=== PATIENT | male | born 1965 | race Two or more races ===

== ENCOUNTER 2024-05-11 10:13 | Outpatient (AMB) | payer MEDICAID, SELFPAY ==
--- NOTE | 2024-05-11 10:22 | ORTHONT_ITS ---
Vital signs 05/11/24 10:23 Height 1.78 m Height Method Stated Weight 77.224 kg Weight Measurement Method Standing Scale BMI 24.3 BP 149/89 H Blood Pressure Source Automatic Cuff Blood Pressure Location Right Upper Arm Position Sitting Respiration 19 Pulse 100 Pulse Source Monitor Temp 97.9 F Temp Source Temporal Artery Scan Pulse Oximetry (%) 95 Oxygen Delivery Method Room Air Med/Allergies Allergies & Medications Allergies No Known Allergies Allergy (Verified 05/11/24 10:25) Medication Reconciliation benzonatate 200 mg capsule 200 mg PO Q8HR PRN Cough 04/23/24 [History Confirmed 05/11/24] acetaminophen 500 mg tablet (Acetaminophen Extra Strength) 1,000 mg (2 x 500 mg) PO Q6H PRN pain #90 tabs 04/26/24 [Rx Confirmed 05/11/24] aspirin 81 mg tablet,delayed release 81 mg PO BID #60 tabs 04/26/24 [Rx Confirmed 05/11/24] doxycycline hyclate 100 mg tablet 100 mg PO BID #14 tabs 04/26/24 [Rx Confirmed 05/11/24] gabapentin 300 mg capsule 300 mg PO .qhs #30 caps 04/26/24 [Rx Confirmed 05/11/24] oxycodone 5 mg tablet 5 mg PO Q6H PRN pain #28 tabs 04/26/24 [Rx Confirmed 05/11/24] sennosides 8.6 mg-docusate sodium 50 mg tablet (Senna-S) 1 tab-cap PO QDAY #30 tabs 04/26/24 [Rx Confirmed 05/11/24] oxycodone 5 mg tablet 5 mg PO Q6H PRN pain #28 tabs 05/03/24 [Rx Confirmed 05/11/24] acetaminophen 500 mg tablet (Acetaminophen Extra Strength) 1,000 mg (2 x 500 mg) PO Q6H PRN pain #90 tabs 05/10/24 [Rx Confirmed 05/11/24] oxycodone 5 mg tablet 5 mg PO Q6H PRN pain #28 tabs 05/10/24 [Rx Confirmed 05/11/24] Subjective Visit Visit for: post op #1 and knee Immunization / Flu Flu Vaccine in the Last 12 Months: Yes Flu Vaccine Exclusion Criteria: Already Received History of Present Illness Chief complaint: 2 WEEK POST OP Date of 1st surgery (if applicable): 04/26/24 Damian is 2 weeks status post right total knee replacement. There were some blisters which have resolved. There was some swelling. He is walking and r eports the pain is now more manageable Personal History Occupation: DISABLED Red flag PMH: none Pain Pain level (0-10): 5 Pain duration: ALL DAY Pain location: groin, inside (medial), outside (lateral) and anterior Pain quality: sharp, dull and aching Pain timing: increases with activity Associated signs & symptoms: numbness Ambulatory data Ambulatory device: walker Treatments Improvement with previous injections: No Improvement with PT: No Improvement with NSAIDS: no Review of Systems Review of Systems: All systems negative unless otherwise noted in HPI. Exam Exam Patient is in no acute distress and is cooperative with the examination today. Regular rate and rhythm Breathing is nonlabored. In no respiratory distress. Bilateral extremities were evaluated and demonstrates sensation intact to light touch. Palpable pedal pulses are present. No significant edema is present. Bilateral hips were examined. The patient has no pain with log roll of the hips. Internal rotation to 30 degrees and external rotation to 30 degrees is painless. Negative FADIR. The left knee was examined. The left knee is in [varus] alignment. Range of motion from [0-115] degrees. Knee is stable to varus and valgus as well as AP translation with <5mm. Patient has a [negative] McMurrays. There is [no] pain with patellofemoral compression and [no] crepitus noted. The knee is [tender] to palpation [medially]. Right knee incision is clean dry and intact. Range of motion is 0 to 70 degrees. The blisters have now healed Assessment and Plan Problem List (1) History of total right knee replacement: Status: Acute Plan: Patient is a pleasant 58-year-old male who is status post right total knee replacement. He is doing well. Will see him approximately in 4 weeks for routine follow-up Office Procedures GNS Level of Care Nursing/Assessment Patient Status: Established Patient Nursing Assessment/Reassesment: Medication Reconciliation, Update PMH in EMR and Vital Signs Coordination of Care: Complex Care and Chronic Disease 1-5, Education Complex Pt/Fam, Consent,records obtained, informed consent, Lab and Imaging orders, Results/Orders obtained and Staff clarify orders Special Needs: Language special needs Established Patient Charge Established Patient Point Assignment: 110 Established Patient Point Charge: EP Level 3 (80-115) Past Medical History Past Medical History Have you ever been diagnosed with any of the following: Neurological Problems Seizures: No Cardiology Problems Congestive Heart Failure: No Respiratory Problems Chronic Obstructive Pulmonary Disease (COPD): No Smoking: No (40+YEARS) Smoking Cessation Counseling: No Smoking Exposure: Yes Genital/Urinary Problems Renal Disease: No Musculoskeletal Problems Arthritis: Yes Fractures: Yes (right arm at 15 yrs old) Head,Eye,Nose,Throat Problems Cataracts: Yes Endocrine Problems Diabetes Mellitus Type 1: No Diabetes Mellitus Type 2: No Other Problems Hospitalization: No Shingles: No Blood Transfusions: No Anesthesia Reactions: No Chicken Pox: Yes Cancer: No Surgical History Total Knee Replacement: Yes
[2024-05-11 10:23] VITALS: BP 149/89; PULSE 100; RESP 19; TEMP 36.6; O2SAT 95; BMI 24.3
== END 2024-05-11 10:46 | disposition home or self-care (01) ==
LOC: HODSRG 10:13
PROVIDERS: PCP Family Medicine; Referring Provider Family Medicine; Supervising Provider Orthopaedic Surgery Adult Reconstructive Orthopaedic Surgery; Visit Provider Orthopaedic Surgery Adult Reconstructive Orthopaedic Surgery
DX: Z96.651 Presence of right artificial knee joint (principal)
CPT/HCPCS: 99213; G0463

== ENCOUNTER 2024-06-11 08:23 | Outpatient (AMB) | payer MEDICAID, SELFPAY ==
[2024-06-11 09:00] VITALS: BP 149/84; PULSE 75; RESP 18; TEMP 36.4; O2SAT 99; BMI 24.6
--- NOTE | 2024-06-11 09:00 | PD.ORTHCLVIS ---
Vital signs 06/11/24 09:00 Height 1.78 m Height Method Stated Weight 78.16 kg Weight Measurement Method Standing Scale BMI 24.6 BP 149/84 H Blood Pressure Source Automatic Cuff Blood Pressure Location Right Upper Arm Position Sitting Respiration 18 Pulse 75 Pulse Source Monitor Temp 97.6 F Temp Source Temporal Artery Scan Pulse Oximetry (%) 99 Oxygen Delivery Method Room Air Med/Allergies Allergies & Medications Allergies No Known Allergies Allergy (Verified 06/11/24 09:01) Medication Reconciliation benzonatate 200 mg capsule 200 mg PO Q8HR PRN Cough 04/23/24 [History Confirmed 06/11/24] acetaminophen 500 mg tablet (Acetaminophen Extra Strength) 1,000 mg (2 x 500 mg) PO Q6H PRN pain #90 tabs 04/26/24 [Rx Confirmed 06/11/24] aspirin 81 mg tablet,delayed release 81 mg PO BID #60 tabs 04/26/24 [Rx Confirmed 06/11/24] doxycycline hyclate 100 mg tablet 100 mg PO BID #14 tabs 04/26/24 [Rx Confirmed 06/11/24] gabapentin 300 mg capsule 300 mg PO .qhs #30 caps 04/26/24 [Rx Confirmed 06/11/24] oxycodone 5 mg tablet 5 mg PO Q6H PRN pain #28 tabs 04/26/24 [Rx Confirmed 06/11/24] sennosides 8.6 mg-docusate sodium 50 mg tablet (Senna-S) 1 tab-cap PO QDAY #30 tabs 04/26/24 [Rx Confirmed 06/11/24] oxycodone 5 mg tablet 5 mg PO Q6H PRN pain #28 tabs 05/03/24 [Rx Confirmed 06/11/24] acetaminophen 500 mg tablet (Acetaminophen Extra Strength) 1,000 mg (2 x 500 mg) PO Q6H PRN pain #90 tabs 05/10/24 [Rx Confirmed 06/11/24] oxycodone 5 mg tablet 5 mg PO Q6H PRN pain #28 tabs 05/21/24 [Rx Confirmed 06/11/24] cyclobenzaprine 5 mg tablet 5 mg PO QHS PRN muscle spasm #60 tabs 06/11/24 [Rx] Subjective Visit Visit for: follow up visit, post op #2 and knee Immunization / Flu Flu Vaccine in the Last 12 Months: No Flu Vaccine Exclusion Criteria: No Exclusion Criteria History of Present Illness Chief complaint: POST OP Date of 1st surgery (if applicable): 04/23 Damina is 2 weeks status post right total knee replacement. He is working with physical therapy outpatient has great range of motion. He is still using a cane Personal History Occupation: DISABLED Red flag PMH: none Pain Pain level (0-10): 4 Pain duration: CONSTANT Pain location: anterior and posterior Pain quality: sharp, dull and aching Pain timing: night Associated signs & symptoms: none Ambulatory data Ambulatory device: cane Treatments Improvement with previous injections: No Improvement with PT: No Improvement with NSAIDS: n/a Review of Systems Review of Systems: All systems negative unless otherwise noted in HPI. Exam Exam Patient is in no acute distress and is cooperative with the examination today. Regular rate and rhythm Breathing is nonlabored. In no respiratory distress. Bilateral extremities were evaluated and demonstrates sensation intact to light touch. Palpable pedal pulses are present. No significant edema is present. Bilateral hips were examined. The patient has no pain with log roll of the hips. Internal rotation to 30 degrees and external rotation to 30 degrees is painless. Negative FADIR. The left knee was examined. The left knee is in [varus] alignment. Range of motion from [0-115] degrees. Knee is stable to varus and valgus as well as AP translation with <5mm. Patient has a [negative] McMurrays. There is [no] pain with patellofemoral compression and [no] crepitus noted. The knee is [tender] to palpation [medially]. Right knee incision is clean dry and intact. Range of motion is 0 to 110 degrees Assessment and Plan Problem List (1) History of total right knee replacement: Status: Acute Plan: Patient is a pleasant 58-year-old male who is status post right total knee replacement. He is doing well. Will see him approximately in 6 weeks for routine follow-up Office Procedures GNS Level of Care Nursing/Assessment Patient Status: Established Patient Nursing Assessment/Reassesment: Medication Reconciliation, Update PMH in EMR and Vital Signs Coordination of Care: Complex Care and Chronic Disease 1-5, Education Complex Pt/Fam, Consent,records obtained, informed consent, Results/Orders obtained and Staff clarify orders Special Needs: Language special needs Established Patient Charge Established Patient Point Assignment: 95 Established Patient Point Charge: EP Level 3 (80-115) Past Medical History Past Medical History Have you ever been diagnosed with any of the following: Neurological Problems Seizures: No Cardiology Problems Congestive Heart Failure: No Respiratory Problems Chronic Obstructive Pulmonary Disease (COPD): No Smoking: No (40+YEARS) Smoking Cessation Counseling: No Smoking Exposure: Yes Genital/Urinary Problems Renal Disease: No Musculoskeletal Problems Arthritis: Yes Fractures: Yes (right arm at 15 yrs old) Head,Eye,Nose,Throat Problems Cataracts: Yes Endocrine Problems Diabetes Mellitus Type 1: No Diabetes Mellitus Type 2: No Other Problems Hospitalization: No Shingles: No Blood Transfusions: No Anesthesia Reactions: No Chicken Pox: Yes Cancer: No Surgical History Total Knee Replacement: Yes
== END 2024-06-11 09:27 | disposition home or self-care (01) ==
LOC: HODSRG 08:23
PROVIDERS: PCP Family Medicine; Referring Provider Family Medicine; Supervising Provider Orthopaedic Surgery Adult Reconstructive Orthopaedic Surgery; Visit Provider Orthopaedic Surgery Adult Reconstructive Orthopaedic Surgery
DX: Z96.651 Presence of right artificial knee joint (principal)
CPT/HCPCS: 99213; G0463

== ENCOUNTER → 2024-06-11 | Outpatient (CLI) | payer MEDICAID, SELFPAY ==
--- NOTE | 2024-06-11 09:54 | XR_ITS ---
Examination: Right knee 4 views TECHNIQUE: AP oblique lateral axial right knee standing 4 views Exam date and time: June 11, 2020 4:11 AM INDICATIONS: Status post knee replacement 6 weeks ago. FINDINGS: Moderate osteopenia Total right knee arthroplasty. Satisfactory alignment Moderate knee effusion IMPRESSION: Total right knee arthroplasty with satisfactory alignment
== END | disposition home or self-care (01) ==
PROVIDERS: Referring Provider Orthopaedic Surgery Adult Reconstructive Orthopaedic Surgery; Visit Provider Orthopaedic Surgery Adult Reconstructive Orthopaedic Surgery
DX: M17.11 Unilateral primary osteoarthritis, right knee (principal); Z96.651 Presence of right artificial knee joint
CPT/HCPCS: 73564

== ENCOUNTER 2024-07-23 08:26 | Outpatient (AMB) | payer MEDICAID, SELFPAY ==
[2024-07-23 08:48] VITALS: BP 135/88; PULSE 79; RESP 18; TEMP 36.5; O2SAT 95; BMI 25.0
--- NOTE | 2024-07-23 08:48 | ORTHONT_ITS ---
Vital signs 07/23/24 08:48 Height 1.78 m Height Method Stated Weight 79.52 kg Weight Measurement Method Standing Scale BMI 25.0 BP 135/88 H Blood Pressure Source Automatic Cuff Blood Pressure Location Right Upper Arm Position Sitting Respiration 18 Pulse 79 Pulse Source Monitor Temp 97.7 F Temp Source Temporal Artery Scan Pulse Oximetry (%) 95 Oxygen Delivery Method Room Air Med/Allergies Allergies & Medications Allergies No Known Allergies Allergy (Verified 07/23/24 08:49) Medication Reconciliation benzonatate 200 mg capsule 200 mg PO Q8HR PRN Cough 04/23/24 [History Confirmed 07/23/24] gabapentin 300 mg capsule 300 mg PO .qhs #30 caps 04/26/24 [Rx Confirmed 07/23/24] acetaminophen 500 mg tablet (Acetaminophen Extra Strength) 1,000 mg (2 x 500 mg) PO Q6H PRN pain #90 tabs 05/10/24 [Rx Confirmed 07/23/24] oxycodone 5 mg tablet 5 mg PO Q6H PRN pain #28 tabs 05/21/24 [Rx Confirmed 07/23/24] cyclobenzaprine 5 mg tablet 5 mg PO QHS PRN muscle spasm #60 tabs 06/11/24 [Rx Confirmed 07/23/24] Exam Exam Patient is in no acute distress and is cooperative with the examination today. Regular rate and rhythm Breathing is nonlabored. In no respiratory distress. Bilateral extremities were evaluated and demonstrates sensation intact to light touch. Palpable pedal pulses are present. No significant edema is present. Bilateral hips were examined. The patient has no pain with log roll of the hips. Internal rotation to 30 degrees and external rotation to 30 degrees is painless. Negative FADIR. The left knee was examined. The left knee is in [varus] alignment. Range of motion from [0-115] degrees. Knee is stable to varus and valgus as well as AP translation with <5mm. Patient has a [negative] McMurrays. There is [no] pain with patellofemoral compression and [no] crepitus noted. The knee is [tender] to palpation [medially]. Right knee incision is clean dry and intact. Range of motion is 0 to 110 degrees Assessment and Plan Problem List (1) History of total right knee replacement: Status: Acute Plan: Patient is a pleasant 58-year-old male who is status post right total knee replacement. He is doing well. We will see him back in 4 months. Office Procedures GNS Level of Care Nursing/Assessment Patient Status: Established Patient Nursing Assessment/Reassesment: Medication Reconciliation, Update PMH in EMR and Vital Signs Coordination of Care: Complex Care and Chronic Disease 1-5, Education Complex Pt/Fam, Consent,records obtained, informed consent, Results/Orders obtained and Staff clarify orders Special Needs: Language special needs Established Patient Charge Established Patient Point Assignment: 95 Established Patient Point Charge: EP Level 3 (80-115) MA Intake Visit Data Collection New Patient or Established: Established Patient (seen at [facility] within 3 years) Reason for Visit:: 6 WEEK F/U Seen by Clinical Staff ONLY (RN/MA): No Verbal consent obtained for Telemed visit?: No 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 PCP or OBGYN visit in last 3 months: Yes Hx Now: No Do You Feel Safe at Home: Yes Authorities Contacted: N/A Questionairres Past Medical History Past Medical History Have you ever been diagnosed with any of the following: Neurological Problems Seizures: No Cardiology Problems Congestive Heart Failure: No Respiratory Problems Chronic Obstructive Pulmonary Disease (COPD): No Smoking: No (40+YEARS) Smoking Cessation Counseling: No Smoking Exposure: Yes Genital/Urinary Problems Renal Disease: No Musculoskeletal Problems Arthritis: Yes Fractures: Yes (right arm at 15 yrs old) Head,Eye,Nose,Throat Problems Cataracts: Yes Endocrine Problems Diabetes Mellitus Type 1: No Diabetes Mellitus Type 2: No Other Problems Hospitalization: No Shingles: No Blood Transfusions: No Anesthesia Reactions: No Chicken Pox: Yes Cancer: No Surgical History Total Knee Replacement: Yes Subjective Visit Visit for: follow up visit and knee Immunization / Flu Flu Vaccine in the Last 12 Months: Yes Flu Vaccine Exclusion Criteria: Already Received History of Present Illness Chief complaint: 6 WEEK TKA FOLLOW UP Patient is doing well 3 months s/p R TKA. He is doing well and has minimal pain. He wants aniinflammatories for his left knee. Personal History Occupation: UNEMPLOYED Red flag PMH: none BMI Counceling provided: Yes Pain Pain level (0-10): 2 Pain duration: COMES AND GOES Pain location: inside (medial), outside (lateral), anterior and posterior Pain quality: dull and aching Associated signs & symptoms: none Ambulatory data Ambulatory device: none Treatments Improvement with previous injections: No Improvement with PT: No Improvement with NSAIDS: n/a Review of Systems Review of Systems: All systems negative unless otherwise noted in HPI.
== END 2024-07-23 09:16 | disposition home or self-care (01) ==
LOC: HODSRG 08:26
PROVIDERS: PCP Family Medicine; Referring Provider Family Medicine; Supervising Provider Orthopaedic Surgery Adult Reconstructive Orthopaedic Surgery; Visit Provider Orthopaedic Surgery Adult Reconstructive Orthopaedic Surgery
DX: Z47.1 Aftercare following joint replacement surgery (principal); Z96.651 Presence of right artificial knee joint
CPT/HCPCS: 99213; G0463

== ENCOUNTER 2024-11-16 08:29 | Outpatient (AMB) | payer MEDICAID, SELFPAY ==
[2024-11-16 08:42] VITALS: BP 137/85; PULSE 72; RESP 18; TEMP 36.5; O2SAT 95; BMI 25.4
--- NOTE | 2024-11-16 08:42 | PD.ORTHCLVIS ---
Vital signs 11/16/24 08:42 Height 1.78 m Height Method Stated Weight 80.541 kg Weight Measurement Method Standing Scale BMI 25.4 BP 137/85 H Blood Pressure Source Automatic Cuff Blood Pressure Location Right Upper Arm Position Sitting Respiration 18 Pulse 72 Pulse Source Monitor Temp 97.7 F Temp Source Temporal Artery Scan Pulse Oximetry (%) 95 Oxygen Delivery Method Room Air Med/Allergies Allergies & Medications Allergies No Known Allergies Allergy (Verified 11/16/24 08:43) Medication Reconciliation benzonatate 200 mg capsule 200 mg PO Q8HR PRN Cough 04/23/24 [History Confirmed 11/16/24] Exam Exam Patient is in no acute distress and is cooperative with the examination today. Regular rate and rhythm Breathing is nonlabored. In no respiratory distress. Bilateral extremities were evaluated and demonstrates sensation intact to light touch. Palpable pedal pulses are present. No significant edema is present. Bilateral hips were examined. The patient has no pain with log roll of the hips. Internal rotation to 30 degrees and external rotation to 30 degrees is painless. Negative FADIR. The left knee was examined. The left knee is in [varus] alignment. Range of motion from [0-115] degrees. Knee is stable to varus and valgus as well as AP translation with <5mm. Patient has a [negative] McMurrays. There is [no] pain with patellofemoral compression and [no] crepitus noted. The knee is [tender] to palpation [medially]. Right knee incision is clean dry and intact. Range of motion is 0 to 110 degrees Assessment and Plan Problem List (1) History of total right knee replacement: Status: Acute Plan: Patient is a pleasant 58-year-old male who is status post right total knee replacement. He is doing well. He has pain in his left knee as well. He has a significant arthritis with cortisone injection on the left knee. Will also get new x-rays of his right Recommend knee cortisone injection as patient would like to proceed with conservative treatment at this time. The risks and benefits of the procedure were reviewed with the patient and patient gave verbal consent to continue with the procedure. Procedure: performed by Dr. Torres Using sterile technique the left knee was thoroughly prepped with alcohol, and approximately 1 cc of Kenalog 40 mg/mL and 4 cc of 1% lidocaine was injected without resistance into the medial tibial femoral joint space. The patient tolerated the procedure. Office Procedures GNS Level of Care Nursing/Assessment Patient Status: Established Patient Nursing Assessment/Reassesment: Medication Reconciliation, Update PMH in EMR and Vital Signs Coordination of Care: Complex Care and Chronic Disease 1-5, Education Complex Pt/Fam, Consent,records obtained, informed consent, Lab and Imaging orders, Results/Orders obtained and Staff clarify orders Special Needs: Language special needs Established Patient Charge Established Patient Point Assignment: 110 Established Patient Point Charge: EP Level 3 (80-115) Surgical Proc/IM SQ injection Major Surgical Procedure: Yes (KNEE INJECTION) Medication Given Medication Given Medication Given: Yes Documented Dose Given: 4 Route: Infiitration Medication Given Medication Given Medication Given: Yes Documented Dose Given: 1 Route: Infiitration Office Meds Xylocaine 10 mg/mL (1 %) injection solution Performing Provider: Pal Torres MD Performing Location: [facility] Administered by: Pal Torres MD on 11/16/24 09:07 Dose Route Admin Location Dispensed Lot Number Expiration Date [facility] [place]NOTE 2] Functional Tester 20 mL Infiltration 20 mL [id number] 03/05/28 44876-640-60 [facility] triamcinolone acetonide 40 mg/mL suspension for injection Performing Provider: Pal Torres MD Performing Location: [facility] Administered by: Pal Torres MD on 11/16/24 09:07 Dose Route Admin Location Dispensed Lot Number Expiration Date [facility] [place]NOTE 2] Functional Tester 40 mg Infiltration KNEE 1 mL [id number] 05/05/26 1852-1266-25 [employer] [place] Intake Visit Data Collection New Patient or Established: Established Patient (seen at [facility] within 3 years) Reason for Visit:: 6 MONTH FOLLOW UP Seen by Clinical Staff ONLY (RN/MA): No Verbal consent obtained for Telemed visit?: No 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 PCP or OBGYN visit in last 3 months: Yes Hx Now: No Do You Feel Safe at Home: Yes Authorities Contacted: N/A Questionairres Past Medical History Past Medical History Have you ever been diagnosed with any of the following: Neurological Problems Seizures: No Cardiology Problems Congestive Heart Failure: No Respiratory Problems Chronic Obstructive Pulmonary Disease (COPD): No Smoking: No (40+YEARS) Smoking Cessation Counseling: No Smoking Exposure: Yes Genital/Urinary Problems Renal Disease: No Musculoskeletal Problems Arthritis: Yes Fractures: Yes (right arm at 15 yrs old) Head,Eye,Nose,Throat Problems Cataracts: Yes Endocrine Problems Diabetes Mellitus Type 1: No Diabetes Mellitus Type 2: No Other Problems Hospitalization: No Shingles: No Blood Transfusions: No Anesthesia Reactions: No Chicken Pox: Yes Cancer: No Surgical History Total Knee Replacement: Yes Subjective Visit Visit for: follow up visit and knee Immunization / Flu Flu Vaccine in the Last 12 Months: Yes Flu Vaccine Exclusion Criteria: Already Received History of Present Illness Chief complaint: 6 MONTH FOLLOW UP Patient is doing well 6 months s/p R TKA. He is doing well and has minimal pain. He wants antiinflammatories for his left knee. Personal History Occupation: UNEMPLOYED Red flag PMH: Blood thinners and BMI BMI Counceling provided: Yes Pain Pain level (0-10): 4 Pain duration: EXTENDING/BENDING Pain location: outside (lateral) Pain quality: sharp, dull and aching Pain timing: increases with activity Associated signs & symptoms: none Ambulatory data Ambulatory device: none Treatments Improvement with previous injections: No Improvement with PT: No Improvement with NSAIDS: no Review of Systems Review of Systems: All systems negative unless otherwise noted in HPI.
--- NOTE | 2024-11-16 08:49 | XR_ITS ---
Examination: Right knee 4 views TECHNIQUE: AP oblique lateral axial right knee 4 views standing Date and time: November 16, 2024 0910 hours INDICATIONS: Right knee replacement April 2025. FINDINGS: Comparison June 11, 2024 Total right knee arthroplasty. Satisfactory alignment. No patellar dislocation No fracture IMPRESSION: Total right knee arthroplasty with satisfactory alignment
== END 2024-11-16 09:05 | disposition home or self-care (01) ==
LOC: HODSRG 08:29
PROVIDERS: Supervising Provider Orthopaedic Surgery Adult Reconstructive Orthopaedic Surgery; Visit Provider Orthopaedic Surgery Adult Reconstructive Orthopaedic Surgery
DX: M17.12 Unilateral primary osteoarthritis, left knee (principal); Z96.651 Presence of right artificial knee joint
CPT/HCPCS: 20610; 73564; 99213; J3301; J3490; G0463

== ENCOUNTER 2025-02-17 09:05 | Outpatient (AMB) | payer MEDICAID, SELFPAY ==
[2025-02-17 09:18] VITALS: BP 144/85; PULSE 76; RESP 16; TEMP 36.7; O2SAT 96; BMI 24.8
--- NOTE | 2025-02-17 09:18 | PD.ORTHCLVIS ---
Vital signs 02/17/25 09:18 Height 1.78 m Height Method Measured Weight 78.642 kg Weight Measurement Method Standing Scale BMI 24.8 BP 144/85 H Blood Pressure Source Automatic Cuff Blood Pressure Location Right Upper Arm Position Sitting Respiration 16 Pulse 76 Pulse Source Monitor Temp 98.0 F Temp Source Temporal Artery Scan Pulse Oximetry (%) 96 Oxygen Delivery Method Room Air Med/Allergies Allergies & Medications Allergies No Known Allergies Allergy (Verified 02/17/25 09:23) Medication Reconciliation benzonatate 200 mg capsule 200 mg PO Q8HR PRN Cough 04/23/24 [History Confirmed 02/17/25] Exam Exam Patient is in no acute distress and is cooperative with the examination today. Regular rate and rhythm Breathing is nonlabored. In no respiratory distress. Bilateral extremities were evaluated and demonstrates sensation intact to light touch. Palpable pedal pulses are present. No significant edema is present. Bilateral hips were examined. The patient has no pain with log roll of the hips. Internal rotation to 30 degrees and external rotation to 30 degrees is painless. Negative FADIR. The left knee was examined. The left knee is in [varus] alignment. Range of motion from [0-115] degrees. Knee is stable to varus and valgus as well as AP translation with <5mm. Patient has a [negative] [place]. There is [no] pain with patellofemoral compression and [no] crepitus noted. The knee is [tender] to palpation [medially]. Right knee incision is clean dry and intact. Range of motion is 0 to 110 degrees Assessment and Plan Problem List (1) History of total right knee replacement: Status: Acute Plan: Patient is a pleasant 58-year-old male who is status post right total knee replacement. He is doing well. He has pain in his left knee as well. He wants to hold off on his left knee surgery for now Office Procedures GNS Level of Care Nursing/Assessment Patient Status: Established Patient Nursing Assessment/Reassesment: Medication Reconciliation, Orthostatic Vitals and Update PMH in EMR Coordination of Care: Complex Care and Chronic Disease 1-5, Education Complex Pt/Fam, Consent,records obtained, informed consent, Results/Orders obtained and Staff clarify orders Special Needs: Language special needs Established Patient Charge Established Patient Point Assignment: 90 Established Patient Point Charge: EP Level 3 (80-115) MA Intake Visit Data Collection New Patient or Established: Established Patient (seen at [facility] within 3 years) Reason for Visit:: 3 MONTH F/U LEFT KNEE INJECTION/XRAY RESULTS Seen by Clinical Staff ONLY (RN/SHAILESH): No Verbal consent obtained for Telemed visit?: No Account Services Analyst Required: Yes PCP or OBGYN visit in last 3 months: Yes Hx Now: No Do You Feel Safe at Home: Yes Authorities Contacted: N/A Questionairres Past Medical History Past Medical History Have you ever been diagnosed with any of the following: Neurological Problems Seizures: No Cardiology Problems Congestive Heart Failure: No Respiratory Problems Chronic Obstructive Pulmonary Disease (COPD): No Smoking: No (40+YEARS) Smoking Cessation Counseling: No Smoking Exposure: Yes Genital/Urinary Problems Renal Disease: No Musculoskeletal Problems Arthritis: Yes Fractures: Yes (right arm at 15 yrs old) Head,Eye,Nose,Throat Problems Cataracts: Yes Endocrine Problems Diabetes Mellitus Type 1: No Diabetes Mellitus Type 2: No Other Problems Hospitalization: No Shingles: No Blood Transfusions: No Anesthesia Reactions: No Chicken Pox: Yes Cancer: No Surgical History Total Knee Replacement: Yes Subjective Visit Visit for: follow up visit and knee Immunization / Flu Flu Vaccine in the Last 12 Months: Yes Flu Vaccine Exclusion Criteria: Already Received History of Present Illness Chief complaint: 3 MONTH F/U LEFT KNEE INJECTION/XRAY RESULTS Patient is doing well 6 months s/p R TKA. He is doing well and has minimal pain. He is back to work. He wants to hold off on his left knee for now. Personal History Occupation: UNEMPLOYED Red flag PMH: Blood thinners and BMI BMI Counceling provided: Yes Pain Pain level (0-10): 5 Pain duration: EXTENDING/BENDING Pain location: outside (lateral) Pain quality: sharp, dull and aching Pain timing: increases with activity Associated signs & symptoms: none Ambulatory data Ambulatory device: none Treatments Improvement with previous injections: No Improvement with PT: No Improvement with NSAIDS: no Review of Systems Review of Systems: All systems negative unless otherwise noted in HPI.
== END 2025-02-17 09:36 | disposition home or self-care (01) ==
PROVIDERS: Supervising Provider Orthopaedic Surgery Adult Reconstructive Orthopaedic Surgery; Visit Provider Orthopaedic Surgery Adult Reconstructive Orthopaedic Surgery
DX: Z96.651 Presence of right artificial knee joint (principal); M25.562 Pain in left knee
CPT/HCPCS: 99213; G0463